=== PATIENT | male | born 1955 | race Caucasian/White ===

== ENCOUNTER 2017-12-19 16:00 | Emergency (ER) | payer BC ==
[2017-12-19 16:33] LABS: BILIRUBIN,URINE NEGATIVE (NEGATIVE); GLUCOSE, URINE (UA) NEGATIVE (NEGATIVE); KETONES,URINE (UA) 15 mg/dL (NEGATIVE); LEUKOCYTE ESTERASE, URINE NEGATIVE (NEGATIVE); NITRITE,URINE NEGATIVE (NEGATIVE); OCCULT BLOOD,URINE NEGATIVE (NEGATIVE); PH,URINE 5.5 PH (5.0-7.5); PROTEIN,URINE NEGATIVE (NEGATIVE); UROBILINOGEN,URINE 0.2 (NORMAL) E.U./dL (NORMAL)
[2017-12-19 16:37] LABS: CLARITY,URINE CLEAR (CLEAR)
[2017-12-19] MEDS ORDERED: SODIUM CHLORIDE 0.9% 1,000 ML IV ONE (16:39)
[2017-12-19] MEDS ORDERED: ONDANSETRON 4 MG/2 ML VIAL IVP STA (16:39)
[2017-12-19] MEDS ORDERED: KETOROLAC 60 MG/2 ML VIAL IVP STA (16:39)
[2017-12-19] MEDS ORDERED: HYDROmorphone 2 MG/ML VIAL IVP STA (16:39)
--- NOTE | 2017-12-19 16:44 | ED Physician Documentation ---
PD HPI ABD PAIN - Stated complaint Stated Complaint: POSS KIDNEY STONES PX - Chief complaint Chief Complaint: Abd Pain - History obtained from History obtained from: Patient, Family () - History of Present Illness Timing - onset: Today (He developed sudden onset right abdominal pain radiating to the right testicle similar prior episodes of renal colic about an hour ago. Last renal colic was about a year ago, he has had several episodes of renal colic, one they attempted intervention but there was complications and they were not able to complete it. He denies vomiting but is nauseous. No changes in bowel movements. Note made of the allergy to naproxen and cephalosporins and NSAIDs. He says that for NSAIDs he just has trouble swallowing the pills but he thinks he has had IV Toradol before without issue.) Review of Systems Ten Systems: 10 systems reviewed and negative Constitutional: denies: Fever, Chills GI: reports: Abdominal Pain, Nausea. denies: Vomiting : reports: Frequency. denies: Dysuria PD PAST MEDICAL HISTORY - Present Medications Home Medications: Ambulatory Orders Medication Instructions Recorded Confirmed Digoxin 125 mcg 12/19/17 Diltiazem HCl [Diltiazem ER] 120 mg 12/19/17 - Allergies Allergies/Adverse Reactions: Allergies Allergy/AdvReac Type Severity Reaction Status Date / Time Cephalosporins Allergy Mild Rash Verified 12/19/17 16:17 naproxen [From Aleve] Allergy Mild Rash Verified 12/19/17 16:20 NSAIDS (Non-Steroidal Allergy Mild Nausea Verified 12/19/17 16:18 Anti-Inflamma Quinolones Allergy Mild Rash Verified 12/19/17 16:18 Sulfa (Sulfonamide Allergy Mild Rash Verified 12/19/17 16:18 Antibiotics) Tetanus Vaccines and Toxoid Allergy Mild Hives Verified 12/19/17 16:19 PD ED PE NORMAL - Vitals Vital signs reviewed: Yes - General General: Alert and oriented X 3, Other (He appears to be in pain, slightly clammy and sweaty) - Cardiac Cardiac: RRR, No murmur - Respiratory Respiratory: No respiratory distress, Clear bilaterally - Abdomen Abdomen: Normal bowel sounds, Soft, Non tender - Neuro Neuro: Alert and oriented X 3, Normal speech - Psych Psych: Normal mood, Normal affect Results - Vitals Vitals: Vital Signs - 24 hr 12/19/17 12/19/17 16:13 16:58 Temperature 36.3 C L Heart Rate 73 70 Respiratory 19 Rate Blood Pressure 161/76 H O2 Saturation 95 97 Oxygen O2 Source Room air - Labs Labs: Laboratory Tests 12/19/17 12/19/17 12/19/17 16:21 16:45 16:45 WBC 7.1 RBC 4.37 L Hgb 15.1 Hct 43.0 MCV 98.5 H MCH 34.5 H MCHC 35.0 RDW 12.3 Plt Count 191 MPV 7.8 Neut # (Auto) 4.0 Lymph # (Auto) 2.4 [place] # (Auto) 0.6 Eos # (Auto) 0.1 Baso # (Auto) 0.0 Absolute Nucleated RBC 0.00 Nucleated RBC % 0.0 Sodium 135 Potassium 3.9 Chloride 102 Carbon Dioxide 23 Anion Gap 10.0 BUN 19 Creatinine 1.2 Estimated GFR (MDRD) 62 L Glucose 100 Calcium 8.8 Total Bilirubin 0.6 AST 24 ALT 25 Alkaline Phosphatase 50 Total Protein 7.3 Albumin 4.3 Globulin 3.0 Albumin/Globulin Ratio 1.4 Lipase 24 Urine Color YELLOW Urine Clarity CLEAR Urine pH 5.5 Ur Specific [place] >=1.030 H Urine Protein NEGATIVE Urine Glucose (UA) NEGATIVE Urine Ketones 15 H Urine Occult Blood NEGATIVE Urine Nitrite NEGATIVE Urine Bilirubin NEGATIVE Urine Urobilinogen 0.2 (NORMAL) Ur Leukocyte Esterase NEGATIVE Ur Microscopic Review NOT INDICATED Urine Culture Comments NOT INDICATED - Rads (name of study) Ct KUB Radiology: EMP read contemporaneously (Mild right hydronephrosis and hydroureter with a 2 mm stone in the urinary bladder) PD MEDICAL DECISION MAKING - ED course ED course: 62-year-old gentleman with recurrent renal colic who presents with symptoms of same, by the time he had a CT here he was pain-free and the stone was in the urinary bladder. - Sepsis Event Vital Signs: Vital Signs - 24 hr 12/19/17 12/19/17 16:13 16:58 Temperature 36.3 C L Heart Rate 73 70 Respiratory 19 Rate Blood Pressure 161/76 H O2 Saturation 95 97 Oxygen O2 Source Room air Departure - Departure Disposition: 01 Home, Self Care Clinical Impression: Renal colic Condition: Good Record reviewed to determine appropriate education?: Yes Instructions: ED Stone Renal W Colic Comments: Call your doctor to arrange a follow-up appointment, make the next available appointment. In the interim, return anytime if worse or if new symptoms develop. Your blood pressure was elevated today on check into the emergency department. This does not mean that you have hypertension, it is a common phenomenon to come to the emergency department and have elevated blood pressure. I recommend that you see your primary care physician within the week to have it rechecked when you are feeling better.
[2017-12-19 17:09] LABS: BASOPHILS % (AUTO) 0.5 %; EOSINOPHILS # (AUTO) 0.1 10^3/uL (0.0-0.7); HGB - HEMOGLOBIN 15.1 g/dL (14.0-18.0); LYMPHOCYTES # (AUTO) 2.4 10^3/uL (1.5-3.5); LYMPHOCYTES % (AUTO) 33.5 %; MEAN CORPUSCULAR HEMOGLOBIN 34.5 pg (27.0-31.0); MEAN CORPUSCULAR VOLUME 98.5 fL (80.0-94.0); MEAN PLATELET VOLUME 7.8 fL (7.4-11.4); MONOCYTES # (AUTO) 0.6 10^3/uL (0.0-1.0); MONOCYTES % (AUTO) 8.4 %; NEUTROPHILS % (AUTO) 56.6 %; PLT - PLATELET COUNT 191 10^3/uL (130-450); RED BLOOD COUNT 4.37 10^6/uL (4.70-6.10); RED CELL DISTRIBUTION WIDTH 12.3 % (12.0-15.0); WHITE BLOOD COUNT 7.1 x10^3/uL (4.8-10.8)
[2017-12-19 17:12] LABS: ALBUMIN 4.3 g/dL (3.2-5.5); ALBUMIN/GLOBULIN RATIO 1.4 (1.0-2.2); BILIRUBIN,TOTAL 0.6 mg/dL (0.2-1.0); CALCIUM 8.8 mg/dL (8.5-10.3); CREATININE 1.2 mg/dL (0.6-1.2); TOTAL PROTEIN 7.3 g/dL (6.7-8.2)
--- NOTE | 2017-12-19 17:49 | CT Report ---
Procedure Date: 12/19/2017 Accession Number: [id number] / [id number] Procedure: CT - Abdomen/Pelvis W/O CPT Code: FULL RESULT: EXAM: CT ABDOMEN AND PELVIS (CT KUB) EXAM DATE: 12/19/2017 05:23 PM. CLINICAL HISTORY: Right flank pain COMPARISONS: None. TECHNIQUE: Routine axial helical CT imaging was performed through the abdomen and pelvis without IV contrast. Reconstructions: Coronal and sagittal. In accordance with CT protocol optimization, one or more of the following dose reduction techniques were utilized for this exam: automated exposure control, adjustment of mA and/or KV based on patient size, or use of iterative reconstructive technique. FINDINGS: Lung Bases: Unremarkable. Right Kidney/Ureter: There is mild right hydronephrosis and hydroureter. No obstructing stone is seen. No significant perinephric stranding. Left Kidney/Ureter: No stones, hydronephrosis, or hydroureter. No perinephric fat stranding. Other Solid Organs: Noncontrast images of the solid organs are grossly unremarkable. Gallbladder/Bile Ducts: Unremarkable. Peritoneal Cavity: No free fluid, free air or clemente adenopathy. Bowel is grossly unremarkable. The appendix is normal. Pelvic Organs: There is a 0.2 cm stone within the dependent urinary bladder. There is a small fat-containing left renal hernia. The prostate gland is unremarkable. No enlarged pelvic lymph nodes. Vasculature: Unremarkable. Other: None. IMPRESSION: There is mild right hydronephrosis and hydroureter. There is a 0.2 cm stone within the dependent urinary bladder. Findings are suggestive of passed stone. There is no evidence of appendicitis or bowel obstruction. [facility]
[2017-12-19 17:59] VITALS: BP 117/78
== END 2017-12-19 18:03 | disposition home or self-care (01) ==
LOC: ED 16:00
DX: N23 Unspecified renal colic (principal); N21.0 Calculus in bladder; R03.0 Elevated blood-pressure reading, without diagnosis of hypertension
CPT/HCPCS: 36415; 74176; 80053; 81003; 83690; 85025; 96361; 96374; 96375; 99283; 99284; J1170; 81001; 87086